=== PATIENT | male | born 1970 | race Caucasian/White ===

== ENCOUNTER 2023-07-12 10:49 | Day surgery (SDC) | payer BC ==
[2023-07-12] MEDS: Lactated Ringers 1,000 ML IV SCH (11:41)
[2023-07-12] MEDS ORDERED: Propofol 200 MG/20 ML SDV ONE (12:42)
[2023-07-12] MEDS ORDERED: Midazolam 1 MG/ML 2 ML SDV ONE (12:42)
[2023-07-12] MEDS ORDERED: Lidocaine 2% 20 ML MDV ONE (12:42)
[2023-07-12] MEDS ORDERED: Ketamine 200 MG/20 ML MDV ONE (12:42)
[2023-07-12] MEDS ORDERED: fentaNYL 50 MCG/ML SDV ONE (12:42)
== END 2023-07-12 13:36 | disposition home or self-care (01) ==
LOC: CC.SDS 10:49
PROVIDERS: ATTEND Family Medicine
DX: K44.9 Diaphragmatic hernia without obstruction or gangrene (principal); K21.9 Gastro-esophageal reflux disease without esophagitis; R07.9 Chest pain, unspecified; I83.90 Asymptomatic varicose veins of unspecified lower extremity; F41.9 Anxiety disorder, unspecified; Z79.82 Long term (current) use of aspirin; Z79.899 Other long term (current) drug therapy
CPT/HCPCS: 43235; J7120; 00731; J2250; J2704; J3010; J3490